=== PATIENT | male | born 1965 | race Caucasian/White ===

== ENCOUNTER 2022-07-10 13:15 | Emergency (ER) | payer OTHER ==
[2022-07-10 13:33] VITALS: PULSE 60
[2022-07-10] MEDS ORDERED: Adacel Vial IM ONE ×2 (13:41→14:15)
[2022-07-10] MEDS ORDERED: BACIGUENT PACKET ONE (14:16)
--- NOTE | 2022-07-10 14:18 | ERPHSYRPT ---
- History of Present Illness Time Seen by Provider: 07/10/22 13:40 Source: patient Exam Limitations: no limitations Patient Subjective Stated Complaint: pt here for dog bite to face, he states went to see a dog for rehoming and got bit. Triage Nursing Assessment: pt alert, resp easy, walked in, has laceration amd abrasoins to right and left side of face, scant amount of bleeding noted Physician History: Patient is a 57-year-old male who suffered a dog bite to the neck and chin. There was a great Joe which was being rehomed and he was anticipating taking the dog he was suddenly attacked by the dog who bit the chin and the right side of the neck he has multiple bite monet to on the chin on the left and multiple teeth monet and lacerations on the right side of the neck. There are 7 bite monet to the right side of the neck 2 of those are gaping and will require closure total length of those 2 would be 4 cm. The 2 bite monet on the left side of the chin will not require suturing or the others on the right side of the neck. No other injury at this time. Timing/Duration: today Quality: painful Severity: moderate Location: face, neck Possible Causes: other (Dog bite) Allergies/Adverse Reactions: No Known Drug Allergies Allergy (Unverified 07/10/22 13:34) Hx Tetanus, Diphtheria Vaccination/Date Given: No Hx Influenza Vaccination/Date Given: No Hx Pneumococcal Vaccination/Date Given: No Immunizations Up to Date: Yes Travel Risk - International Travel Have you traveled outside of the country in past 3 weeks: No - Coronavirus Screening Are you exhibiting any of the following symptoms?: No Close contact with a COVID-19 positive Pt in past 14-21 Days: No - Vaccine Status Have you recieved a Covid-19 vaccination: No - Review of Systems Constitutional: No Fever, No Chills Eyes: No Symptoms Ears, Nose, & Throat: No Symptoms Respiratory: No Cough, No Dyspnea Cardiac: No Chest Pain, No Edema, No Syncope Abdominal/Gastrointestinal: No Abdominal Pain, No Nausea, No Vomiting, No Diarrhea Genitourinary Symptoms: No Dysuria Musculoskeletal: No Back Pain, No Neck Pain Skin: Other (Bite monet left chin right neck), No Rash Neurological: No Dizziness, No Focal Weakness, No Sensory Changes Psychological: No Symptoms Endocrine: No Symptoms All Other Systems: Reviewed and Negative - Past Medical History Pertinent Past Medical History: No - Past Surgical History Past Surgical History: No - Social History Smoking Status: Never smoker Exposure to second hand smoke: No Patient Lives Alone: No - Nursing Vital Signs Nursing Vital Signs: Initial Vital Signs Temperature 97.2 F 07/10/22 13:32 Pulse Rate 60 07/10/22 13:32 Respiratory Rate 18 07/10/22 13:32 Blood Pressure 126/74 07/10/22 13:32 O2 Sat by Pulse Oximetry 99 07/10/22 13:32 Pain Scale Pain Intensity 0 - Physical Exam General Appearance: mild distress Eye Exam: PERRL/EOMI, eyes nml inspection Ears, Nose, Throat Exam: other (The bite monet are as follows on the left side of the chin there are 2 puncture type wounds that will not require suturing. On the right side of the neck there are long superficial abrasions approximately 5 of them which will not require suturing there are 2 -2 bite monet on the right side of the n) Neck Exam: other (Bite monet as described above) Respiratory Exam: normal breath sounds, lungs clear, No respiratory distress Cardiovascular Exam: regular rate/rhythm, normal heart sounds Gastrointestinal/Abdomen Exam: soft, mass, No tenderness Back Exam: normal inspection, normal range of motion, No CVA tenderness, No vertebral tenderness Extremity Exam: normal inspection, normal range of motion Neurologic Exam: alert, oriented x 3, cooperative, normal mood/affect, sensation nml, No motor deficits Skin Exam: laceration (Lacerations as described above) Lymphatic Exam: adenopathy SpO2: 99 Procedures - Laceration/Wound Repair Right Neck Time of Procedure: 14:19 Wound Location: Right, neck Wound Length (cm): 4 (There are 2 lacerations both measuring approximately 2 cm that will require suturing.) Wound's Depth, Shape: linear Wound Explored: clean Irrigated: Yes Hibiclens Prep: Yes Anesthesia: 1% Lidocaine Volume Anesthetic (ccs): 3 Wound Debrided: minimal Wound Repaired With: sutures Suture Size/Type: 4-0, nylon Number of Sutures: 4 Layer Closure?: No Sterile Dressing Applied?: Yes Splint Applied?: No Sling Applied?: No - Course Nursing assessment & vital signs reviewed: Yes Ordered Tests: Medication Summary Discontinued Medications Generic Name Dose Route Start Last Admin Trade Name Freq PRN Reason Stop Dose Admin Bacitracin Zinc Confirm 07/10/22 14:16 Bacitracin Packet 1 Each Pckt Administered 07/10/22 14:17 Dose 2 each .ROUTE .STK-MED ONE Diphtheria/Tetanus/Acell Pertussis 0.5 ml 07/10/22 13:41 Tdap --Diph,Pertuss(Acell),Tet Vac/Pf 0.5 Ml Vial IM 07/10/22 13:42 .ONCE ONE Diphtheria/Tetanus/Acell Pertussis Confirm 07/10/22 14:15 Tdap --Diph,Pertuss(Acell),Tet Vac/Pf 0.5 Ml Vial Administered 07/10/22 14:16 Dose 0.5 ml IM .STK-MED ONE - Progress Progress: improved - Departure Departure Disposition: Home Clinical Impression: Dog bite Condition: Stable Critical Care Time: No Referrals: LYDIA KAY [Primary Care Provider] - Follow up/PCP as directed Instructions: Animal Bites (DC) Prescriptions: Amox Tr/Potass Clav. 875 mg [Augmentin 875-125 Tablet] 875 mg PO BID 10 Days #20 tablet
[2022-07-10 14:30] VITALS: BP 146/84; O2SAT 98
== END 2022-07-10 15:14 | disposition home or self-care (01) ==
LOC: ED 13:15
DX: S11.95XA Open bite of unspecified part of neck, initial encounter (principal); S00.87XA Other superficial bite of other part of head, initial encounter; S10.87XA Other superficial bite of other specified part of neck, initial encounter; W54.0XXA Bitten by dog, initial encounter; Z28.310 Unvaccinated for COVID-19
CPT/HCPCS: 12002; 90471; 90715; 99282; A9270-GY